=== PATIENT | female | born 1965 | race African-American/Black ===

== ENCOUNTER → 2020-08-06 | Outpatient (CLI) | payer OTHER ==
--- NOTE | 2020-08-06 15:39 | RAD ---
Three-view lumbar spine series Clinical indications: Back pain for years. FINDINGS: Transverse processes are intact. No compression fracture or discitis or lytic process evide nt. No anterolisthesis is seen. There is mild degenerative endplate spurring and moderate degenerativ e disc space narrowing at L5-S1. There is mild degenerative endplate spurring and mild degenerative d isc space narrowing at L4-5. IMPRESSION: Degenerative lumbar spondylosis. No acute compression fracture is seen. Electronically signed by: Andrea Osborn MD (08/06/2020 3:36 PM) [id number]
== END ==
LOC: RAD 09:02
PROVIDERS: ATTEND Family Medicine
DX: Z02.71 Encounter for disability determination (principal); M47.816 Spondylosis without myelopathy or radiculopathy, lumbar region
CPT/HCPCS: 72100